=== PATIENT | female | born 1995 ===

== ENCOUNTER 2024-01-05 21:24 | Inpatient (IN) | payer OTHER ==
[2024-01-05 22:09] VITALS: BMI 32.5
[2024-01-05] MEDS ORDERED: HYDROcodone/Acetaminophen 5/325 mg Tablet PO PRN (22:32)
[2024-01-05] MEDS ORDERED: Misoprostol 200 MCG TAB PR PRN (22:32)
[2024-01-05] MEDS ORDERED: fentaNYL 50 mcg/mL 1 mL Vial SLOW IVP PRN (22:32)
[2024-01-05] MEDS ORDERED: Promethazine HCl 25 MG/ML VIAL IM PRN (22:32)
[2024-01-05] MEDS ORDERED: Methylergonovine 0.2 MG/ML VIAL IM PRN (22:32)
[2024-01-05] MEDS ORDERED: Ondansetron PF 4 MG/2 ML Vial IVP PRN (22:32)
[2024-01-05] MEDS ORDERED: Carboprost 250 MCG/ML AMP IM PRN (22:32)
[2024-01-05] MEDS ORDERED: Acetaminophen 500 MG TAB PO PRN (22:32)
[2024-01-05] MEDS ORDERED: hydrALAZINE 20 MG/ML VIAL SLOW IVP PRN (22:32)
[2024-01-05] MEDS ORDERED: Diphenoxylate HCl/Atropine Tablet PO PRN (22:32)
[2024-01-05] MEDS ORDERED: Tranexamic Acid 1,000 MG/10 ML VIAL IVP PRN (22:32)
[2024-01-05] MEDS ORDERED: Docusate 100 MG CAP PO PRN (22:32)
[2024-01-05] MEDS ORDERED: Oxytocin 30 units/NS 500 ML 500 ML IV SCH (22:45)
[2024-01-05 23:33] LABS: Hemoglobin 11.9 g/dL (12.0-15.5); Mean Corpuscular Hemoglobin 31.4 pg (27.0-33.0); Mean Corpuscular Volume 89.7 fl (81.6-98.3); Mean Platelet Volume 11.3 fl (7.4-10.4); Platelet Count 207 10x3/uL (150-450); RBC Distribution Width 13.7 % (11.5-14.5); Red Blood Cell (RBC) Count 3.79 10x6/uL (3.90-5.03); White Blood Cell (WBC) Count 9.8 10x3/uL (3.5-10.5)
[2024-01-06 00:08] LABS: Hep B Surf Ag - L&D Non-Reactive S/CO (NonReactive)
[2024-01-06 00:09] LABS: Syphilis Antibody Nonreactive (Nonreactive); Syphilis Antibody Index 0.05 S/CO (<1.00 Non-Reactive)
[2024-01-06] MEDS: Oxytocin 30 units/NS 500 ML 500 ML IV SCH (08:00)
[2024-01-06] MEDS: Lidocaine 1% (PF) 30 ML VIAL SC PRN (09:24)
[2024-01-06] MEDS: Ibuprofen 800 MG TAB PO PRN (10:13)
[2024-01-06] MEDS ORDERED: hydrALAZINE 20 MG/ML VIAL SLOW IVP PRN (13:30)
[2024-01-06] MEDS ORDERED: Milk Of Magnesia 30 ML UDCUP PO PRN (13:30)
[2024-01-06] MEDS ORDERED: Bisacodyl 10 MG SUPP PR PRN (13:30)
[2024-01-06] MEDS ORDERED: Lanolin Ointment 7 GM TUBE TOP PRN (13:30)
[2024-01-06] MEDS: Boostrix 0.5 ML (Tdap) VIAL (>/=7 yrs of age) IM ONE (13:39)
[2024-01-06] MEDS: Ferrous Sulfate 325 MG TAB PO SCH (13:39)
[2024-01-06] MEDS: Ibuprofen 800 MG TAB PO SCH (21:49)
[2024-01-06] MEDS: Docusate 100 MG CAP PO SCH (21:50)
[2024-01-07] MEDS: Ibuprofen 800 MG TAB PO SCH (05:41)
[2024-01-07] MEDS: Prenatal Vitamin 1 TAB PO SCH (07:42)
[2024-01-07 07:43] VITALS: BP 116/66; TEMP 97.8
== END 2024-01-07 17:58 | disposition home or self-care (01) | DRG 768 ==
LOC: CSHLD/OP 21:24 → CSHLD 22:32 → CSHPP 01-06 11:34
PROVIDERS: ADMIT Family Medicine; ATTEND Family Medicine
PROC: 10E0XZZ Delivery of Products of Conception, External Approach (ICD-10-PCS; principal; 2024-01-06)
PROC: 0UQC7ZZ Repair Cervix, Via Natural or Artificial Opening (ICD-10-PCS; 2024-01-06)
PROC: 0KQM0ZZ Repair Perineum Muscle, Open Approach (ICD-10-PCS; 2024-01-06)
PROC: 10H07YZ Insertion of Other Device into Products of Conception, Via Natural or Artificial Opening (ICD-10-PCS; 2024-01-06)
PROC: 10907ZC Drainage of Amniotic Fluid, Therapeutic from Products of Conception, Via Natural or Artificial Opening (ICD-10-PCS; 2024-01-06)
DX: O34.211 Maternal care for low transverse scar from previous cesarean delivery (principal); Z37.0 Single live birth; O71.3 Obstetric laceration of cervix; Z3A.39 39 weeks gestation of pregnancy; O70.1 Second degree perineal laceration during delivery
CPT/HCPCS: 36415; 51701; 85027; 86780; 86850; 86900; 86901; 87340; 99285; J2001; J2590